=== PATIENT | female | born 1965 | race Caucasian/White ===

== ENCOUNTER → 2016-10-29 | Outpatient (CLI) | payer MEDICARE ==
[~2016-10-29] MED LIST: FENTANYL PF 100 MCG/2ML ONE; LISI2.5T PO; MIDAZOLAM 1 MG/ML, 5ML ONE; OMEP40CA6 PO
== END | disposition home or self-care (01) ==
LOC: RAD 09:19
PROVIDERS: ATTEND Physician Assistant Surgical
DX: M43.23 Fusion of spine, cervicothoracic region (principal); M46.82 Other specified inflammatory spondylopathies, cervical region; M47.892 Other spondylosis, cervical region
CPT/HCPCS: 72141; J2250; J3010; 99156; 99157

== ENCOUNTER 2017-02-08 18:38 | Emergency (ER) | payer MEDICARE ==
[~2017-02-08] VITALS: Ht 162.6 cm; Wt 59.3 kg
[~2017-02-08 18:38] MED LIST changes: -FENTANYL PF 100 MCG/2ML ONE; -MIDAZOLAM 1 MG/ML, 5ML ONE
[2017-02-08 18:39] VITALS: BP 146/92
[2017-02-08] MEDS ORDERED: SODIUM CHLORIDE 0.9% 1,000ML IVBOLUS ONE (19:00)
[2017-02-08] MEDS ORDERED: ONDANSETRON 2MG/ML, 2ML IVPush ONE (19:00)
[2017-02-08] MEDS ORDERED: SODIUM CHLORIDE FLUSH 10ML SYR IVF ONE (19:00)
[2017-02-08 19:18] LABS: HEMATOCRIT 51.3 % (34.6-47.8); HEMOGLOBIN 17.2 g/dL (11.7-16.4)
[2017-02-08] MEDS ORDERED: ONDANSETRON 2MG/ML, 2ML ONE (19:18)
[2017-02-08] MEDS ORDERED: PROMETHAZINE 25 MG/ML, 1ML ONE (19:18)
[2017-02-08] MEDS ORDERED: PROMETHAZINE 25 MG/ML, 1ML IM ONE (19:30)
[2017-02-08 19:32] LABS: BLOOD UREA NITROGEN 7 mg/dL (7-18)
== END 2017-02-08 20:52 | disposition left against medical advice (07) ==
LOC: ED 20:19
DX: G44.209 Tension-type headache, unspecified, not intractable (principal); E11.65 Type 2 diabetes mellitus with hyperglycemia; I10 Essential (primary) hypertension; F17.200 Nicotine dependence, unspecified, uncomplicated; Z88.6 Allergy status to analgesic agent; Z88.2 Allergy status to sulfonamides; Z88.1 Allergy status to other antibiotic agents; Z88.5 Allergy status to narcotic agent; Z88.8 Allergy status to other drugs, medicaments and biological substances
CPT/HCPCS: 36415; 70450; 80048; 82040; 85025; 96360; 96372; 99285; J2550; J7030